=== PATIENT | male | born 2000 | race Native Hawaiian/Other Pacific Islander ===

== ENCOUNTER 2022-01-05 18:10 | Emergency (ER) | payer SELFPAY ==
[2022-01-05] MEDS ORDERED: Bacitracin 1 PK ONE (19:08)
[2022-01-05] MEDS ORDERED: Lidocaine 1% (PF) 30 ML VIAL ONE (19:08)
== END 2022-01-05 21:23 | disposition home or self-care (01) ==
LOC: CSHERS 18:10
DX: S61.411A Laceration without foreign body of right hand, initial encounter (principal); W25.XXXA Contact with sharp glass, initial encounter
CPT/HCPCS: 12004; J2001